=== PATIENT | female | born 1960 | race Caucasian/White ===

== ENCOUNTER 2018-03-18 07:35 | Day surgery (SDC) | payer BC ==
[~2018-03-18 07:35] MED LIST: Buffered Lidocaine 0.9% SYRIN* 5 ML/SYR SYRINGE INTRADERM ONE
[2018-03-18] MEDS ORDERED: Clindamycin 900 MG IVPREMIX(* 900 MG/50 ML SDV IV ONE (07:42)
[2018-03-18] MEDS ORDERED: Lidocaine 2% PF * 5 ML VIAL ONE (08:00)
[2018-03-18] MEDS ORDERED: Propofol* 10 MG/ML 20 ML BTL IV PUSH ONE (08:00)
[2018-03-18] MEDS ORDERED: Succinylcholine* 20 MG/ML 10 ML VIAL ONE (08:07)
[2018-03-18] MEDS ORDERED: Midazolam* 1 MG/ML 2 ML VIAL (2 MG) ONE (08:08)
[2018-03-18] MEDS ORDERED: fentaNYL* 50 MCG/ML 2 ML VIAL (100 MCG VIAL) ONE ×2 (08:09→11:16)
[2018-03-18] MEDS ORDERED: fentaNYL* 50 MCG/ML 5 ML VIAL (250 MCG VIAL) ONE (08:09)
[2018-03-18] MEDS ORDERED: Bupivacaine 0.5% PF 10 ML VIAL INJ ONE (08:19)
[2018-03-18] MEDS ORDERED: Metoclopramide IV* 5 MG/ML 2 ML VIAL ONE (08:35)
[2018-03-18] MEDS ORDERED: Famotidine IV* 10 MG/ML 2 ML (20 mg) IV SLOW PU ONE (08:36)
[2018-03-18] MEDS ORDERED: Famotidine IV* 10 MG/ML 2 ML (20 mg) ONE (08:36)
[2018-03-18] MEDS ORDERED: Metoclopramide IV* 5 MG/ML 2 ML VIAL IV ONE (08:40)
[2018-03-18] MEDS ORDERED: EPHEDrine (Pressors)* 50 MG/ML VIAL ONE (10:11)
[2018-03-18] MEDS ORDERED: Ondansetron INJ* 2 MG/ML VIAL ONE (10:18)
[2018-03-18] MEDS ORDERED: Dexamethasone IV* 4 MG/ML 1 ML (4 MG) ONE (10:18)
[2018-03-18] MEDS ORDERED: DiMENhydriNATE IV* 50 MG/ML VIAL IV PUSH PRN (11:18)
[2018-03-18] MEDS ORDERED: Naloxone* 0.4 MG/ML 1 ML VIAL IV PRN (11:18)
[2018-03-18] MEDS ORDERED: Acetaminophen TAB* 325 MG PO PRN (11:18)
[2018-03-18] MEDS ORDERED: fentaNYL* 50 MCG/ML 2 ML VIAL (100 MCG VIAL) IV PRN (11:18)
[2018-03-18 13:38] VITALS: BP 121/72
--- NOTE | 2018-03-22 22:18 | OP ---
DATE OF OPERATION: 03/18/18 - [facility] DATE OF : 56 SURGEON: Star East MD EDUCATION ADMINISTRATOR: CODEY Montes. An miner assistant was needed for the entirety of the procedure to aide in positioning of the arm and retraction. ANESTHESIA: General. 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 POST-OP DIAGNOSES: 1. 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 2. Right scaphotrapezoid degenerative joint disease. OPERATIVE PROCEDURE: 1. Right thumb carpometacarpal arthroplasty with trapeziectomy. 2. Distally based right flexor carpi radialis split tendon transfer for thumb suspension and tendon interposition. 3. Right partial trapeziectomy with FCR tendon interposition between the distal pole of the scaphoid and the proximal aspect of the trapezoid. 4. Right thumb metacarpophalangeal joint volar capsulodesis with release of the volar plate proximally, advancement and repair of the volar plate with 2 DePuy Mini Mitek suture anchors. INDICATIONS: Jessica has extensive degenerative joint disease in the right thumb, quite painful. She has lost the ability to use the thumb for lots of routine activities, which she enjoys. We had talked about risks and benefits. She had wanted to proceed with surgical intervention. ESTIMATED BLOOD LOSS: 2 mL. COMPLICATIONS: None. FINDINGS: See above and below. DESCRIPTION OF PROCEDURE: Jessica was seen in the preoperative holding area. The correct side, site, and procedure were identified. We came back to the operating room, the arm was prepped and draped in usual fashion. A time-out was performed. I began by exsanguinating the arm, the Esmarch, and the tourniquet was inflated to 250 mmHg. I made a 2-cm longitudinal incision over the dorsal radial aspect of the thumb. Dissection was carried down into the anatomic snuff box where radial artery was identified, mobilized, and retracted out of the way. I made a longitudinal incision through the capsule and periosteum and flaps were raised to expose the entirety of the trapezium. The trapezium was then excised in piecemeal fashion with a rongeur. The FCR tendon was preserved in the base of the wound. Once the entirety of the trapezium was excised, I was able to pull traction on the second ray and inspect the scaphotrapezoid joint where full -thickness cartilage loss was noted. I took my osteotome and I excised the proximal 3 mm of the trapezoid bone. This came out as a nice big piece. No fracture of the trapezoid occurred. The area was irrigated out. I attempted to create contact between the base of the trapezoid and the distal pole of the scaphoid and I was not able to. At this point, I turned my attention to the tendon transfer. I made a 1-cm transverse incision over the distal aspect of the FCR tendon. Tendon was delivered up into the wound. The sheath was released and the tendon was split with a 15 blade and then a 26-gauge wire was passed into the split. I then came 7 to 8 cm proximal and made a second transverse incision and then a third transverse incision was made proximal to that. The tendon sheath was released along the course of the tendon. The wire was passed into the two most proximal wounds releasing the split end at the musculo-tendinous junction proximally. The split end was then delivered into the distal wound. All muscular remnants were removed and the end of the tendon was sewed with a 3-0 Ethibond suture to prevent tendon fraying and splitting during the transfer. The split end was delivered into the thumb base wound with use of two 26-gauge wires. The tendon split was completed down to the base of the second metacarpal. A bone tunnel had previously been made from the dorsal radial aspect of the thumb metacarpal base exiting out the volar ulnar articular surface just adjacent to the base of the second metacarpal. The tendon transfer was passed through that bone tunnel around the intact limb of the FCR and then appropriate tension was set as 3 [id number] 3-0 Ethibond sutures were used to secure the transfer. The first sutures sewed all 3 limbs of the tendon transfer together. The second two sewed intact limb to intact limb. After the tendon transfer was completed, I sewed the remainder of my split end of the tendon into a mat and placed a tendon mat as an interposition between the distal pole of the scaphoid and the base of the trapezoid and the proximal aspect of the trapezoid. This created a very snug fit. Everything was looking good, so we irrigated out the wound and all the wounds were closed with 4-0 nylon suture. Lastly, I made a Alfie-type incision over the volar aspect of the metacarpophalangeal joint. The digital nerves were identified and retracted out of the way. The A1 laureano was released and the tendon was retracted out of the way. I released the volar plate off its proximal attachment. I also released it radially and ulnarly, so that I could advance it. I went ahead and placed 2 DePuy Mini Mitek suture anchors just proximal to the articular surface in the metacarpal neck. I placed the sutures into the volar plate in such a way that I was able to advance the volar plate setting the tension, so that the thumb came to 10 degrees of flexion at MP joint and no further. The sutures were tied off and there was excellent stability of the MCP joint. At this point , the retractors were removed. The wound was irrigated out. Skin was closed with 4-0 nylon suture. I went ahead and infiltrated Marcaine in the operative area. The wounds were appropriately dressed and thumb spica splint was placed at the tip of the thumb, holding the thumb in 10 degrees of MP joint flexion. Tourniquet was deflated. The hand pinked up immediately. She was then woken up and taken to the recovery room in stable condition. [id number]/[facility] #: [id number] SHARON
== END 2018-03-18 13:52 | disposition home or self-care (01) ==
LOC: OREAST 07:35
PROVIDERS: ATTEND Orthopaedic Surgery Hand Surgery
DX: M18.11 Unilateral primary osteoarthritis of first carpometacarpal joint, right hand (principal); M19.031 Primary osteoarthritis, right wrist; M25.531 Pain in right wrist; I10 Essential (primary) hypertension; G47.33 Obstructive sleep apnea (adult) (pediatric); Z85.42 Personal history of malignant neoplasm of other parts of uterus
CPT/HCPCS: 88304; 88311; C1713; J0330; J1100; J2250; J2405; J2704; J2765; J3010